=== PATIENT | female | born 1990 | race Caucasian/White ===

== ENCOUNTER 2016-05-20 18:51 | Emergency (ER) | END 2016-05-20 23:13 | disposition home or self-care (01) | DX: A08.4 Viral intestinal infection, unspecified (principal); R11.2 Nausea with vomiting, unspecified; F17.210 Nicotine dependence, cigarettes, uncomplicated | CPT/HCPCS: 74176; 80053; 81001; 83690; 85025; J2270; J2405; J7030; Z7610 ==